=== PATIENT | female | born 1975 | race Asian ===

== ENCOUNTER 2017-11-03 11:06 | Inpatient (IN) | payer SELFPAY ==
[~2017-11-03] VITALS: Ht 165.1 cm; Wt 67.6 kg
[2017-11-03] MEDS ORDERED: LR 1,000 ML IV ONE (11:56)
[2017-11-03 12:22] LABS: BASOPHILS % (AUTO) 0.5 % (0.0-2.0); EOSINOPHILS # (AUTO) 0.1 K/uL (0.0-0.4); EOSINOPHILS % (AUTO) 0.9 % (0.0-4.0); HEMATOCRIT 43.3 % (36-48); HEMOGLOBIN 14.5 g/dL (12.0-16.0); LYMPHOCYTES # (AUTO) 1.2 K/uL (1.0-5.5); LYMPHOCYTES % (AUTO) 15.3 % (20.5-51.5); MEAN CORPUSCULAR HEMOGLOBIN 32 pg (27-31); MEAN CORPUSCULAR HGB CONC 34 % (32-36); MEAN CORPUSCULAR VOLUME 96 fL (79.0-98.0); MONOCYTES # (AUTO) 0.6 K/uL (0.0-1.0); MONOCYTES % (AUTO) 7.6 % (1.7-9.3); NEUTROPHILS # (AUTO) 6.1 K/uL (1.8-7.7); NEUTROPHILS % (AUTO) 75.7 % (40.0-70.0); PLATELET COUNT (AUTO) 171 K/uL (130-430); RED BLOOD CELL COUNT(AUTO) 4.54 MIL/uL (4.2-6.2); RED CELL DISTRIBUTION WIDTH 13.7 % (9.0-15.0)
[2017-11-03 12:35] LABS: BILIRUBIN,URINE NEGATIVE (NEGATIVE); BLOOD, URINE TRACE (NEGATIVE); CLARITY/URINE SLIGHTLY HAZY (CLEAR); COLOR,URINE YELLOW (YELLOW); GLUCOSE,URINE NEGATIVE (NEGATIVE); KETONES,URINE NEGATIVE (NEGATIVE); LEUKOCYTE ESTERASE ,URINE 1+ (NEGATIVE); NITRITE, URINE NEGATIVE (NEGATIVE); PH,URINE 6.5 (5.0-8.0); PROTEIN URINE NEGATIVE (NEGATIVE); UROBILINOGEN,URINE 0.2 (0.2-1.0)
[2017-11-03 12:41] LABS: BACTERIA,URINE FEW /HPF (None Seen); RBC,URINE 0-3 /HPF (0-3)
[2017-11-03 12:42] LABS: MUCUS,URINE 1+ /LPF (None Seen)
[2017-11-03] MEDS ORDERED: CLINDAMYCIN 900 mg/50mL D5W 50 ML IV ONE (12:45)
[2017-11-03 13:20] VITALS: BP_SYST 123
[2017-11-03] MEDS ORDERED: FLU VACC QS 2017-18(36MOS+)/PF 0.5 ML/SYR SYRINGE I.M. PRN (13:30)
[2017-11-03] MEDS ORDERED: OXYTOCIN/NORMAL SALINE 1,000 ML IV ONE (17:07)
[2017-11-03] MEDS ORDERED: LR 1,000 ML IV SCH (17:07)
[2017-11-03] MEDS ORDERED: MEASLES,MUMPS&RUBELLA VACC/PF 12500 UNIT/0.5 ML VIAL SUBQ PRN (17:15)
[2017-11-03] MEDS ORDERED: RHO(D) IMMUNE GLOBULIN/MALTOSE 1500 UNITS/1.3 ML (WINHRO) IM PRN (17:15)
[2017-11-03] MEDS ORDERED: TEMAZEPAM 15 MG CAPSULE PO PRN (17:15)
[2017-11-03] MEDS ORDERED: ANUSOL 1 EA SUPP.RECT (PREPARATION H) RC PRN (17:15)
[2017-11-03] MEDS ORDERED: ACETAMINOPHEN 325 MG TABLET PO PRN (17:15)
[2017-11-03] MEDS ORDERED: HYDROcodone/ACETAMIN 5-325 MG TAB (NORCO/ VICODIN) PO PRN (17:15)
[2017-11-03] MEDS ORDERED: LANOLIN 7 GM OINT. TP PRN (17:15)
[2017-11-03] MEDS ORDERED: BISACODYL 10 MG/SUPPOSITORY RC PRN (17:15)
[2017-11-03] MEDS ORDERED: SENNOSIDES/DOCUSATE SODIUM 1 TAB TABLET(SENOKOT-S) PO PRN (17:15)
[2017-11-03] MEDS ORDERED: DOCUSATE SODIUM 100 MG CAPSULE PO PRN (17:15)
[2017-11-03] MEDS ORDERED: KETOROLAC TROMETHAMINE 60 MG/2 ML VIAL IM PRN (17:45)
[2017-11-03] MEDS ORDERED: MORPHINE SULFATE 10MG/10ML PF AMP SP SCH (17:45)
[2017-11-03] MEDS ORDERED: ONDANSETRON HCL 4 MG/2 ML VIAL IVP PRN ×2 (17:45)
[2017-11-03] MEDS ORDERED: NALBUPHINE HCL 10 MG/ML AMP IVP PRN (17:45)
[2017-11-03] MEDS ORDERED: NALOXONE HCL 0.4 MG/ML AMP (NARCAN) IVP PRN ×2 (17:45)
[2017-11-03] MEDS ORDERED: DIPHENHYDRAMINE INJ 50 MG/ML VIAL IVP PRN (17:45)
[2017-11-03] MEDS ORDERED: LR 1,000 ML IV.SOLN IV ONE (17:50)
[2017-11-03] MEDS ORDERED: MORPHINE SULFATE 10MG/10ML PF AMP EP ONE (17:50)
[2017-11-03] MEDS ORDERED: OXYTOCIN 10 UNIT/ML VIAL IV ONE (17:50)
[2017-11-03] MEDS ORDERED: METHYLERGONOVINE MALEATE 0.2 MG/ML AMP IM ONE (17:50)
[2017-11-03] MEDS ORDERED: NS IRRIG SOLN 1000 ML IR ONE (17:50)
[2017-11-03 18:11] VITALS: BP_SYST 134
[2017-11-04 07:18] LABS: BASOPHILS % (AUTO) 0.3 % (0.0-2.0); EOSINOPHILS # (AUTO) 0.1 K/uL (0.0-0.4); EOSINOPHILS % (AUTO) 0.6 % (0.0-4.0); HEMATOCRIT 41.5 % (36-48); HEMOGLOBIN 14.3 g/dL (12.0-16.0); LYMPHOCYTES # (AUTO) 1.2 K/uL (1.0-5.5); LYMPHOCYTES % (AUTO) 10.3 % (20.5-51.5); MEAN CORPUSCULAR HEMOGLOBIN 33 pg (27-31); MEAN CORPUSCULAR HGB CONC 34 % (32-36); MEAN CORPUSCULAR VOLUME 95 fL (79.0-98.0); MONOCYTES # (AUTO) 0.6 K/uL (0.0-1.0); MONOCYTES % (AUTO) 5.1 % (1.7-9.3); NEUTROPHILS # (AUTO) 9.9 K/uL (1.8-7.7); PLATELET COUNT (AUTO) 143 K/uL (130-430); RED BLOOD CELL COUNT(AUTO) 4.37 MIL/uL (4.2-6.2); RED CELL DISTRIBUTION WIDTH 13.4 % (9.0-15.0); WHITE BLOOD COUNT (AUTO) 11.8 K/uL (4.8-10.8)
[2017-11-04] MEDS: SIMETHICONE 80 MG TAB.CHEW PO PRN ×3 (08:52→18:04)
[2017-11-04] MEDS: HYDROcodone/ACETAMIN 5-325 MG TAB (NORCO/ VICODIN) PO PRN ×2 (08:52→14:10)
[2017-11-04 10:09] LABS: NEUTROPHILS % (AUTO) 83.7 % (40.0-70.0)
[2017-11-04] MEDS: IBUPROFEN 600 MG TABLET PO SCH ×2 (12:36→18:04)
[2017-11-05] MEDS: IBUPROFEN 600 MG TABLET PO SCH ×4 (06:07→18:16)
[2017-11-05] MEDS: SIMETHICONE 80 MG TAB.CHEW PO PRN (09:02)
[2017-11-06] MEDS: IBUPROFEN 600 MG TABLET PO SCH ×2 (00:02→06:44)
== END 2017-11-06 10:20 | disposition home or self-care (01) | DRG 766 ==
LOC: SPU 11:06 → OBSVTOIN 12:06
PROVIDERS: ADMIT Obstetrics & Gynecology; ATTEND Obstetrics & Gynecology
PROC: 10D00Z1 Extraction of Products of Conception, Low, Open Approach (ICD-10-PCS; principal; 2017-11-03 17:00)
DX: O34.211 Maternal care for low transverse scar from previous cesarean delivery (principal); J45.909 Unspecified asthma, uncomplicated; O99.52 Diseases of the respiratory system complicating childbirth; Z37.0 Single live birth; Z3A.40 40 weeks gestation of pregnancy
CPT/HCPCS: 36415; 81000-TC; 85025; 86592; 86886; 86900; 86901; 87086; 94760; G0378; J2210; J2274; J2590; J3490; J7120; Q2037